=== PATIENT | female | born 1955 | race American Indian/Alaskan Native ===

== ENCOUNTER 2018-03-30 07:11 | Day surgery (SDC) | payer OTHER ==
[2018-03-30] MEDS ORDERED: WATER FOR IRRIG STERILE ONE (07:51)
[2018-03-30] MEDS ORDERED: WATER FOR IRRIG STERILE IR ONE (07:51)
[2018-03-30] MEDS ORDERED: NACL 0.9% 1000 ML 1,000 ML IV SCH (08:00)
[2018-03-30] MEDS ORDERED: DIPRIVAN 10 MG/ML IV ONE ×2 (08:35)
[2018-03-30] MEDS ORDERED: XYLOCAINE 1% 20 mL ONE (08:36)
--- NOTE | 2018-03-30 09:17 | Anesthesia Consultation ---
Anesthesia Consult and Med Hx Date of service: 03/30/18 - Airway Anesthetic Teeth Evaluation: Dentures ROM Head & Neck: Adequate Mental/Hyoid Distance: Adequate Mallampati Class: Class I Intubation Access Assessment: Good - Pulmonary Exam CTA: Yes - Cardiac Exam Cardiac Exam: RRR - Pre-Operative Health Status ASA Pre-Surgery Classification: ASA2 Proposed Anesthetic Plan: MAC - Cardiovascular System Hx Hypertension: Yes
--- NOTE | 2018-03-30 09:17 | Anesthesia Day of Surgery ---
Anesthesia Day of Surgery - Day of Surgery Patient Examined: Yes Patient H&P Reviewed: Yes Patient is NPO: Yes
[2018-03-30 11:27] VITALS: BP 164/93
--- NOTE | 2018-03-30 12:06 | Operative Report ---
Operative Report Operative Report: Date of procedure: 03/30/2018 Procedure: Colonoscopy with Snare polypectomy and submucosal injection. Attending physician: Yinka Viera M.D. Customer Contact Sales Associate: Yinka Viera M.D. Indication: Patient is a 62-year-old female who presents for screening colonoscopy. This colonoscopy serves to evaluate patient so that treatment may be directed based on the findings. Consent: Informed consent was obtained after advising the patient and family regarding nature of this procedure, its indications, potential benefits as well as possible complications including but not limited to bleeding perforation and adverse reaction to medication, infection as well as other cardiopulmonary complications. An informed written and verbal consent was then obtained after due opportunity was provided for questions and answers. Monitoring: Patient was monitored continuously with pulse oximetry and electrocardiographic recordings as well as blood pressure recordings. Vital signs remained stable throughout this procedure with no untoward events. Preoperative assessment: Patient was assessed immediately prior to this procedure for capacity to tolerate monitored anesthesia care and moderate sedation as well as general anesthesia. Patient's ASA classification is 2, Mallampati class is 2, Hyomental distance is 3. Instrument: [address] video colonoscope Medications: Propofol given intravenously in divided doses. For details please refer to anesthesia records. Description of procedure: Patient was placed in the left lateral decubitus position after achieving sedation, a digital rectal examination was performed following which the colonoscope was introduced into the anal verge and advanced to the cecum which was identified by the cecal valve, the appendiceal orifice, as well as by the cecal strap and direct transillumination. The colonoscope was subsequently withdrawn with careful inspection of all mucosal surfaces. Patient tolerated this procedure well and was subsequently taken to the recovery room. The following findings were noted. Findings: The preparation was poor with densely adherent thick liquid stool with an oil film in the entire colon. Patient had a sessile polyp seen in the cecum, measuring about 8 mm. This was elevated with submucosal injection of saline and removed by snare electrocautery. Patient has prominent internal hemorrhoids seen on the retroflexed view at the anal verge. Impression: Cecal polyp status post snare polypectomy and submucosal injection. Poor Preparation with densely adherent stool. Internal hemorrhoids. Plan: Follow pathology report. High-fiber diet. Repeat colonoscopy within 1 year, due to poor colonoscopic preparation.
--- NOTE | 2018-03-30 12:06 | Discharge Summary ---
Short Stay Discharge Plan Activity: advance as tolerated Weight Bearing Status: Weight Bear as Tolerated Diet: regular Additional Instructions: Post Sedation D/C Instructions When you return home you may resume your regular diet unless otherwise directed. -Go directly home from the hospital and rest quietly. You may resume normal activities tomorrow. -Do NOT drive, return to work, operate any machinery or make any important personal or business decisions today. -Do NOT drink any alcohol or take nerve or sleeping drugs. They add to the effects of the medicine still present in your body. Follow up with: GARY HIDALGO MD [Other] - 7 Days
== END 2018-03-30 07:12 | disposition home or self-care (01) ==
LOC: GIO 07:11
PROVIDERS: ATTEND Internal Medicine Gastroenterology
DX: D12.0 Benign neoplasm of cecum (principal); K44.9 Diaphragmatic hernia without obstruction or gangrene; I10 Essential (primary) hypertension; Z79.899 Other long term (current) drug therapy; Z88.1 Allergy status to other antibiotic agents; Z90.710 Acquired absence of both cervix and uterus; Z98.890 Other specified postprocedural states; Z83.71 Family history of colonic polyps; Z82.49 Family history of ischemic heart disease and other diseases of the circulatory system
CPT/HCPCS: 45381; 45385; 88305; J2704; J7030